=== PATIENT | female | born 1990 | race African-American/Black ===

== ENCOUNTER 2016-12-08 15:42 | Emergency (ER) | payer BC, OTHER ==
--- NOTE | ~2016-12-08 | CT4 ---
[facility] A Service of [facility] [place] RADIOLOGY TEXT RESULTS PATIENT: IRVING TATUM LOCATION: SED : [birth year] UNIT #: [id number] AGE: [address]: Tayler Luz SEX: F ORDER DR: [id number] [address] [address] [id number] E MR#: [id number] Acc #: [id number] NAME: IRVING TATUM : 1990 SEX: F STUDY DATE/TIME: 12/08/2016 16:44 UNIT: SED ROOM: STUDY DESCRIPTION: CT Abd and Pelv Wo Cont Attending Physician: Tayler Luz Pa-C Ordering Physician: Tayler Luz Pa-C Primary Care Physician: Aline Marie M.D. MEDICAL IMAGING REPORT This report is preliminary unless electronic signature is present. EXAM CT of abdomen and pelvis without contrast. INDICATIONS Left flank pain and left-sided abdominal pain today. TECHNIQUE CT of the abdomen and pelvis was performed without contrast. Coronal and sagittal reformatted images were obtained. This CT exam was performed with one or more of the following radiation dose reduction techniques: automatic exposure control, adjustment of mA and/or kV according to patient size, and iterative reconstruction. COMPARISON Comparison is made with 07/07/2015. FINDINGS The lung bases are clear. The liver, gallbladder and spleen are unremarkable. There are numerous bilateral tiny intrarenal nonobstructing stones. There is mild left-sided hydronephrosis and left hydroureter. There is a tiny 3 mm stone at the left ureterovesical junction. The adrenal glands and pancreas are unremarkable. PELVIS: A 3 mm stone at the left ureterovesical junction as described. The colon is unremarkable and the appendix is normal. The bone windows are unremarkable. IMPRESSION 3 mm stone at the left ureterovesical junction with mild left-sided hydronephrosis and hydroureter. Dictated by... [facility] A Service of [facility] [place] RADIOLOGY TEXT RESULTS PATIENT: IRVING TATUM LOCATION: SED : [birth year] UNIT #: [id number] AGE: [address]: aTyler Luz SEX: F ORDER DR: Rm Hubbard M.D. THIS IS AN ELECTRONICALLY VERIFIED REPORT Rm Hubbard M.D. at 12/09/2016 3:52 PM VISHAL/laura TD: 12/08/2016 23:52 JOB #: [id number] MEDICAL IMAGING REPORT Page 1 of 1
[~2016-12-08 15:42] MED LIST: AUGMENTIN875 M1 PO; CIPRO PO; CLARITIN10 M3 PO; FLOMAX0.4 M1 PO; HYDROCODONE-APA1 T57 PO; NO MEDICATIONS; ONDANSETRON4 MG/TAB DOB; PERCOCET 5-3251 TAB PO; PHENERGAN25 M1 PO; ZOFRAN ODT4 MG/UDTAB PO
[2016-12-08 17:52] LABS: URINE SOURCE CLEAN CATCH
[2016-12-08 17:53] LABS: URINE APPEARANCE CLEAR; URINE BILIRUBIN NEG (NEG); URINE BLOOD TRACE-INTACT (NEG); URINE COLOR YELLOW; URINE GLUCOSE NEG (NORM); URINE KETONE 1+ (NEG); URINE LEUKOCYTE ESTERASE NEG (NEG); URINE NITRATE NEG (NEG); URINE PH 5.5 (5-8); URINE PROTEIN 1+ (NEG); URINE SPECIFIC GRAVITY >=1.030 (1.003-1.035)
[2016-12-08 18:11] LABS: MICRO INDICATED? YES
[2016-12-08 18:12] LABS: CULTURE INDICATED? NO; URINE BACTERIA NEG (NEG); URINE RBC 0-2 /[HPF] (0-2); URINE WBC 0-2 /[HPF] (0-5)
== END 2016-12-08 18:50 | disposition home or self-care (01) ==
LOC: SED 15:42
PROVIDERS: Physician Assistant Medical
DX: N13.2 Hydronephrosis with renal and ureteral calculous obstruction (principal); Z87.442 Personal history of urinary calculi
CPT/HCPCS: 36415; 74176; 81003; 96361; 96374; 96375; 99284; J1170; J1885; J2405

== ENCOUNTER 2016-12-14 18:21 | Emergency (ER) | payer BC, OTHER ==
--- NOTE | ~2016-12-14 | CT4 ---
[facility] A Service of [facility] RADIOLOGY TEXT RESULTS PATIENT: IRVING TATUM LOCATION: SED : [birth year] UNIT #: [id number] AGE: [address]: RAVINDRA SAHU SEX: F ORDER DR: [id number] [place] [id number] E MR#: [id number] Acc #: [id number] NAME: IRVING TATUM : 1990 SEX: F STUDY DATE/TIME: 12/14/2016 19:54 UNIT: SED ROOM: STUDY DESCRIPTION: CT Abd and Pelv Wo Cont Attending Physician: Ravindra Sahu Ordering Physician: Ravindra Sahu Primary Care Physician: Primary Care Physician No MEDICAL IMAGING REPORT This report is preliminary unless electronic signature is present. EXAM CT scan of the abdomen and pelvis without contrast, 12/14/2016 HISTORY Right flank pain beginning last night with history of kidney stones. Evaluate for obstructing renal calculus. TECHNIQUE Spiral CT was performed through the abdomen and pelvis without oral or intravenous contrast administration using renal stone protocol. This CT exam was performed with one or more of the following radiation dose reduction techniques: automatic exposure control, adjustment of mA and/or kV according to patient size, and iterative reconstruction. FINDINGS ABDOMEN: There is mild right hydronephrosis and hydroureter due to a 4 mm obstructing stone at the right ureterovesical junction. Multiple nonobstructing renal stones are seen bilaterally. The visualized liver, spleen, pancreas, gallbladder and biliary tree and adrenal glands are normal. PELVIS FINDINGS: The gut, mesenteric and river structures are normal. There is a 3.5 cm low-density lesion on the right ovary. This would be better evaluated with pelvic ultrasound if clinically indicated. There is a small amount of fluid within the pelvic cul-de-sac. Findings could reflect recently ruptured ovarian cyst. IMPRESSION 1. Mild right hydronephrosis and hydroureter due to a 4 mm obstructing stone at the right ureterovesical junction. 2. Multiple nonobstructing renal stones bilaterally. [facility] A Service of [facility] RADIOLOGY TEXT RESULTS PATIENT: IRVING TATUM LOCATION: SED : [birth year] UNIT #: [id number] AGE: [address]: RAVINDRA SAHU SEX: F ORDER DR: 3. A 3.5 cm cystic lesion on the right ovary. This would be better evaluated with pelvic ultrasound if clinically indicated. Small amount of free fluid is seen in the pelvic cul-de-sac. Findings could reflect recently ruptured ovarian cyst. Clinical correlation recommended. Dictated by... Marko Monzon M.D. THIS IS AN ELECTRONICALLY VERIFIED REPORT Marko Monzon M.D. at 12/15/2016 2:08 PM JACKIE/artie TD: 12/14/2016 22:34 JOB #: [id number] MEDICAL IMAGING REPORT Page 1 of 1
--- NOTE | ~2016-12-14 | CR7 ---
[facility] A Service [facility] RADIOLOGY TEXT RESULTS PATIENT: IRVING TATUM LOCATION: SED : [birth year] UNIT #: [id number] AGE: [address]: RAVINDRA SAHU SEX: F ORDER DR: [id number] [place] [id number] E MR#: [id number] Acc #: [id number] NAME: IRVNIG TATUM : 1990 SEX: F STUDY DATE/TIME: 12/14/2016 21:41 UNIT: SED ROOM: STUDY DESCRIPTION: CR Abdomen Single AP View Attending Physician: Ravindra Sahu Ordering Physician: Ravindra Sahu Primary Care Physician: Primary Care Physician No MEDICAL IMAGING REPORT This report is preliminary unless electronic signature is present. EXAM Single view of the abdomen, 12/14/[address] abdomen and pelvis without contrast dated 12/14/2016. HISTORY Right side abdominal pain starting last night. FINDINGS Frontal view of the abdomen was obtained. Leftward curvature of the lumbar spine is seen with the apex at L2-3. Brito angle measured from the superior endplate of L1 to the inferior endplate of L4 is 15 degrees. Pedicles, spinous process and transverse process are intact. Adjacent soft tissues are unremarkable. There is a nonobstructing bowel gas pattern noted with distended stomach with air. IMPRESSION 1. No obvious free intraperitoneal air. 2. Distended air-filled stomach is noted with relatively nondistended bowel loops. 3. Levoscoliosis with the apex at L2-3. No associated mass. Dictated by... Angeles Frias M.D. THIS IS AN ELECTRONICALLY VERIFIED REPORT Angeles Frias M.D. at 12/15/2016 1:27 PM CPR/ljd [facility] A Service [facility] RADIOLOGY TEXT RESULTS PATIENT: IRVING TATUM LOCATION: SED : [birth year] UNIT #: [id number] AGE: [address]: RAVINDRA SAHU SEX: F ORDER DR: TD: 12/14/2016 23:51 JOB #: [id number] MEDICAL IMAGING REPORT Page 1 of 1
[2016-12-14] MEDS ORDERED: HYDROCODONE PO (18:28)
[2016-12-14] MEDS ORDERED: NAUSEA MEDICATION (18:29)
[2016-12-14 19:19] LABS: BASOPHIL# 0.1 X10e3 (0-0.3); BASOPHIL% 0.8 % (0-2.5); EOSINOPHIL# 0.3 X10e3 (0-0.7); EOSINOPHIL% 2.3 % (0.0-7.0); HEMATOCRIT 38.9 % (35.0-45.0); HEMOGLOBIN 13.1 gm/dL (12.0-16.0); LYMPHOCYTE# 3.3 X10e3 (1.0-3.5); LYMPHOCYTE% 29.4 % (17.0-45.0); MEAN CELL VOLUME 94.5 FL (83-96); MEAN CORPUSCULAR HEMOGLOBIN 31.7 PG (28-34); MEAN CORPUSCULAR HGB CONC 33.6 g/dL (30-36); MEAN PLATELET VOLUME 9.1 FL (6.5-11.5); MONOCYTE# 0.6 X10e3 (0-1.0); MONOCYTE% 5.7 % (3.0-12.0); NEUTROPHIL# 6.9 X10e3 (1.5-7.1); NEUTROPHIL% 61.8 % (40-75); PLATELET COUNT 169 X10e3 (140-420); RED BLOOD COUNT 4.12 X10e (3.90-5.30); RED CELL DISTRIBUTION WIDTH 13.2 % (11.0-15.5); WHITE BLOOD COUNT 11.2 X10e3 (4.0-10.5)
[2016-12-14 19:21] LABS: DIFF IND NO
[2016-12-14 19:37] LABS: ALBUMIN SERUM 5.2 g/dL (3.5-5.0); BILIRUBIN,TOTAL 1.3 mg/dL (0.2-2.0); BUN/CREATININE RATIO 13.75; CALCIUM SERUM 9.7 mg/dL (8.4-10.2); CREATININE SERUM 0.8 mg/dL (0.6-1.4); GLOM FILT RATE Estimated 119.7 mL/min (>60); POTASSIUM 3.2 mmol/L (3.5-5.1); PROTEIN TOTAL SERUM 8.1 g/dL (6.0-8.3)
[2016-12-14 19:39] LABS: URINE APPEARANCE CLOUDY; URINE BILIRUBIN POS (NEG); URINE BLOOD 3+ (NEG); URINE COLOR YELLOW; URINE GLUCOSE NEG (NORM); URINE LEUKOCYTE ESTERASE NEG (NEG); URINE NITRATE NEG (NEG); URINE PROTEIN 2+ (NEG); URINE SOURCE CLEAN CATCH; URINE SPECIFIC GRAVITY >=1.030 (1.003-1.035)
[2016-12-14 19:43] LABS: MICRO INDICATED? YES; URINE KETONE 3+ (NEG)
[2016-12-14 19:44] LABS: CULTURE INDICATED? YES; URINE BACTERIA 1+ (NEG); URINE MUCUS PRESENT; URINE RBC 200-300 /[HPF] (0-2); URINE SQUAMOUS EPITHELIAL CELL OCCAS /[HPF]
== END 2016-12-14 22:55 | disposition home or self-care (01) ==
LOC: SED 18:21
PROVIDERS: Nurse Practitioner
DX: N13.2 Hydronephrosis with renal and ureteral calculous obstruction (principal); N83.201 Unspecified ovarian cyst, right side
CPT/HCPCS: 36415; 74000; 74176; 80053; 81003; 84703; 85025; 87086; 96361; 96374; 96375; 96376; 99284; J1170; J1885; J2270; J2405; J2550